=== PATIENT | female | born 1955 | race African-American/Black ===

== ENCOUNTER 2023-02-27 05:44 | Inpatient (IN) | payer OTHER, MEDICAID ==
[2023-02-27] VITALS (27 sets, daily range): BP systolic 84–140; BP diastolic 32–101
[~2023-02-27] VITALS: Ht 170.2 cm; Wt 98.0 kg
[2023-02-27] MEDS ORDERED: cefTRIAXone 1GM/50ML D5W 50 ML IV ONE (07:00)
[2023-02-27] MEDS ORDERED: SODIUM CHLORIDE 0.9% 1,000 ML IV ONE ×2 (07:00)
[2023-02-27 07:27] LABS: Eosinophils # (auto) 0.1 10 ^3/uL (0-0.8); Eosinophils % (auto) 0.6 % (0.0-7.0); Hemoglobin 12.4 g/dL (12.2-16.2); Nucleated Red Blood Cells % 0.1 %
[2023-02-27 07:30] LABS: Basophils # (auto) 0 10 ^3/uL (0-0.2); Basophils % (auto) 0.3 % (0.0-2.0); Hematocrit 39.1 % (36.0-46.0); Lymphocytes # (auto) 1.4 10 ^3/uL (0.4-5.4); Lymphocytes % (auto) 13.1 % (10.0-50.0); Mean Corpuscular Hemoglobin 25.6 pg (28.0-32.0); Mean Corpuscular Hgb Conc. 31.6 g/dL (32.0-36.0); Mean Corpuscular Volume 81.2 fL (80.0-100.0); Monocytes # (auto) 1.2 10 ^3/uL (0-1.3); Monocytes % (auto) 10.9 % (0.0-12.0); Neutrophils % (auto) 75.1 % (37.0-80.0); Red Blood Cells 4.82 10^6/uL (4.0-5.20); Red Cell Distribution Width 16.4 % (11.8-14.3); White Blood Cell 10.7 10^3/uL (4.4-10.8)
[2023-02-27 07:51] LABS: INR 1.11 (0.9-1.15)
[2023-02-27 07:52] LABS: Lactic Acid w/Reflex 3.8 mmol/L (0.4-2.0)
[2023-02-27 07:58] LABS: Albumin 3.4 g/dL (3.4-5.0); BUN/Creatinine Ratio 13.6 (10.0-20.0); Bilirubin, Total 0.6 mg/dL (0.2-1.0); Total Protein 7.5 g/dL (6.4-8.2)
[2023-02-27 08:01] LABS: Potassium 6.6 mmol/L (3.5-5.1)
[2023-02-27] MEDS ORDERED: ENOXAPARIN SOD 100 MG/1 ML SYRINGE SC ONE (08:15)
[2023-02-27] MEDS ORDERED: ALBUTEROL SULF 2.5 MG/0.5ML(0.5%) NEB SOLN NEB ONE (08:15)
[2023-02-27] MEDS ORDERED: DEXTROSE (50%) 50ML SYRG IV ONE (08:15)
[2023-02-27] MEDS ORDERED: CALCIUM GLUC 1,000mg/50ml-NS 50 ML IV ONE (08:15)
[2023-02-27] MEDS ORDERED: FUROSEMIDE 20 MG/2 ML VIAL IV ONE (08:15)
[2023-02-27] MEDS ORDERED: SODIUM ZIRCONIUM CYCL 10 GM PAK PO ONE (08:15)
[2023-02-27] MEDS ORDERED: InsuLIN REG 1unit/0.01ml Soln (100units/ml) IV ONE (08:15)
[2023-02-27] MEDS ORDERED: SODIUM BICARBONATE 8.4% INJ 50ML SYRINGE IV ONE (08:15)
[2023-02-27] MEDS ORDERED: DEXTROSE 10% 250 ML IV ONE ×2 (08:36→08:45)
[2023-02-27 11:13] LABS: Urine Bacteria None Seen /hpf (None Seen)
[2023-02-27] MEDS ORDERED: NITROGLYCERIN 0.4 MG SL TAB SL PRN (12:00)
[2023-02-27] MEDS ORDERED: SODIUM CHLORIDE 0.9% 1,000 ML IV SCH (12:00)
[2023-02-27] MEDS ORDERED: MORPHINE SULFATE INJ 2 MG/ml SYRG IV PRN (12:00)
[2023-02-27] MEDS ORDERED: HYDROcodone-ACET 5/325MG TAB PO PRN (12:00)
[2023-02-27] MEDS ORDERED: ONDANSETRON HCL 4 MG/2 ML VIAL IV PRN (12:00)
[2023-02-27] MEDS ORDERED: ACETAMINOPHEN 325 MG TAB PO PRN (12:00)
[2023-02-27] MEDS ORDERED: NOREPINEPHRINE 8 MG/250ML KIT 250 ML IV SCH (12:30)
[2023-02-27 12:37] LABS: Urine Blood Trace /uL (Negative); Urine Specific Gravity 1.016 (1.001-1.035)
[2023-02-27 12:38] LABS: Urine WBC 12 /hpf (0 - 5)
[2023-02-27] MEDS ORDERED: SODIUM BICARBONATE 50ML VIAL 50 ML in SOD CHL 0.45% 1,000 ML IV SCH (13:15)
[2023-02-27] MEDS: MORPHINE SULFATE INJ 2 MG/ml SYRG IV PRN ×2 (15:50→20:57)
[2023-02-27] MEDS: SODIUM BICARB 50ML SYR 50 ML in D5W/SOD CHL 0.45% 1,000 ML IV SCH (20:30)
[2023-02-27] MEDS ORDERED: SODIUM BICARBONATE 8.4 % INJ 50ML VIAL IV ONE (20:49)
[2023-02-27] MEDS ORDERED: MELO1TAB56 PO (21:35)
[2023-02-27] MEDS ORDERED: HYDR-4296 PO (21:35)
[2023-02-27] MEDS ORDERED: METF-370 PO (21:35)
[2023-02-27] MEDS ORDERED: GABA-339 PO (21:35)
[2023-02-27] MEDS ORDERED: ATOR40TA52 PO (21:35)
[2023-02-27] MEDS ORDERED: INSLANTI SC (21:35)
[2023-02-27] MEDS ORDERED: OXYB5SYP4 PO (21:35)
[2023-02-27] MEDS ORDERED: BENA20TA14 PO (21:35)
[2023-02-28] VITALS (75 sets, daily range): BP systolic 92–159; BP diastolic 34–102
[2023-02-28] MEDS: MORPHINE SULFATE INJ 2 MG/ml SYRG IV PRN ×2 (03:06→21:26)
[2023-02-28 05:04] LABS: Basophils # (auto) 0 10 ^3/uL (0-0.2); Eosinophils # (auto) 0.1 10 ^3/uL (0-0.8); Monocytes # (auto) 1.5 10 ^3/uL (0-1.3); Nucleated Red Blood Cells % 0.1 %
[2023-02-28 05:07] LABS: Basophils % (auto) 0.2 % (0.0-2.0); Eosinophils % (auto) 1.3 % (0.0-7.0); Hematocrit 36.9 % (36.0-46.0); Hemoglobin 11.8 g/dL (12.2-16.2); Lymphocytes # (auto) 1.5 10 ^3/uL (0.4-5.4); Lymphocytes % (auto) 15.6 % (10.0-50.0); Mean Corpuscular Hemoglobin 25.8 pg (28.0-32.0); Mean Corpuscular Hgb Conc. 31.9 g/dL (32.0-36.0); Mean Corpuscular Volume 80.8 fL (80.0-100.0); Monocytes % (auto) 15.8 % (0.0-12.0); Neutrophils # (auto) 6.3 10 ^3/uL (1.6-8.6); Neutrophils % (auto) 67.1 % (37.0-80.0); Red Blood Cells 4.56 10^6/uL (4.0-5.20); Red Cell Distribution Width 15.9 % (11.8-14.3); White Blood Cell 9.4 10^3/uL (4.4-10.8)
[2023-02-28 05:20] LABS: Albumin 3.1 g/dL (3.4-5.0); Calcium 8.1 mg/dL (8.5-10.1); Potassium 4.7 mmol/L (3.5-5.1)
[2023-02-28 05:23] LABS: BUN/Creatinine Ratio 26.4 (10.0-20.0); Bilirubin, Total 0.5 mg/dL (0.2-1.0); Total Protein 7.2 g/dL (6.4-8.2)
[2023-02-28] MEDS: cefTRIAXone 1GM/50ML D5W 50 ML IV SCH (08:34)
[2023-02-28] MEDS: SODIUM BICARB 50ML SYR 50 ML in D5W/SOD CHL 0.45% 1,000 ML IV SCH (08:54)
[2023-02-28 11:28] LABS: Protein, Urine 24.1 mg/dL (0.0-11.9)
[2023-02-28] MEDS: IPRATROPIUM BROM 0.5 MG/2.5ML INH SOL NEB SCH ×3 (12:36→23:59)
[2023-02-28] MEDS: ALBUTEROL SULF 2.5 MG/0.5ML(0.5%) NEB SOLN NEB SCH ×3 (12:36→23:59)
[2023-02-28] MEDS ORDERED: diazePAM 5 MG TAB PO ONE (13:00)
[2023-02-28] MEDS ORDERED: HYDROmorphone HCL 2 MG/ML VL/or syr IV ONE (15:45)
[2023-02-28] MEDS: SODIUM CHLORIDE 0.9% 1,000 ML IV SCH (18:06)
[2023-02-28] MEDS: MUPIROCIN 2% OINT 15gm or 22gm FOR MRSA NARES EACHNOSTRI SCH (21:24)
[2023-02-28] MEDS: ATORVASTATIN 20 MG TAB PO SCH (21:26)
[2023-03-01] VITALS (18 sets, daily range): BP systolic 112–190; BP diastolic 66–95
[2023-03-01] MEDS: hydrALAZINE HCL 20 MG/ML VL IV PRN ×2 (04:53→09:15)
[2023-03-01] MEDS: IPRATROPIUM BROM 0.5 MG/2.5ML INH SOL NEB SCH ×4 (05:51→23:57)
[2023-03-01] MEDS: ALBUTEROL SULF 2.5 MG/0.5ML(0.5%) NEB SOLN NEB SCH ×4 (05:52→23:57)
[2023-03-01] MEDS: MORPHINE SULFATE INJ 2 MG/ml SYRG IV PRN (06:23)
[2023-03-01] MEDS: SODIUM CHLORIDE 0.9% 1,000 ML IV SCH (06:50)
[2023-03-01] MEDS: cefTRIAXone 1GM/50ML D5W 50 ML IV SCH (09:15)
[2023-03-01] MEDS: MUPIROCIN 2% OINT 15gm or 22gm FOR MRSA NARES EACHNOSTRI SCH ×2 (10:00→20:59)
[2023-03-01] MEDS: ASPirin 81 mg TAB PO SCH (10:21)
[2023-03-01 14:47] LABS: BUN/Creatinine Ratio 15.4 (10.0-20.0); Calcium 8.6 mg/dL (8.5-10.1); Potassium 4.2 mmol/L (3.5-5.1)
[2023-03-01] MEDS: ATORVASTATIN 20 MG TAB PO SCH (20:58)
[2023-03-02] MEDS: hydrALAZINE HCL 20 MG/ML VL IV PRN ×2 (04:41→08:40)
[2023-03-02 05:00] VITALS: BP 167/69
[2023-03-02] MEDS: IPRATROPIUM BROM 0.5 MG/2.5ML INH SOL NEB SCH ×2 (06:35→11:41)
[2023-03-02] MEDS: ALBUTEROL SULF 2.5 MG/0.5ML(0.5%) NEB SOLN NEB SCH ×2 (06:35→11:41)
[2023-03-02] MEDS: cefTRIAXone 1GM/50ML D5W 50 ML IV SCH (08:39)
[2023-03-02 09:00] VITALS: BP 173/66
[2023-03-02] MEDS: ASPirin 81 mg TAB PO SCH (10:00)
[2023-03-02] MEDS ORDERED: amLODIPine BESYLATE 5 MG TAB PO SCH (10:00)
[2023-03-02] MEDS: MUPIROCIN 2% OINT 15gm or 22gm FOR MRSA NARES EACHNOSTRI SCH (10:58)
[2023-03-02 13:00] VITALS: BP 170/70
[2023-03-02] MEDS ORDERED: IOHEXOL 350 MG/ML 100ML IJ ONE (13:56)
[2023-03-02] MEDS ORDERED: AML5T PO (16:40)
[2023-03-02] MEDS ORDERED: CEPH-510 PO (16:40)
[2023-03-02 17:00] VITALS: BP 171/85
== END 2023-03-02 19:00 | disposition home or self-care (01) | DRG 871 ==
LOC: ER 05:44 → OVERFLOW 11:57 → ICU CENTRL 17:20 → TELE-CENTR 03-01 15:30
PROVIDERS: ADMIT Internal Medicine; ATTEND Internal Medicine
DX: A41.9 Sepsis, unspecified organism (principal); G93.41 Metabolic encephalopathy; J96.01 Acute respiratory failure with hypoxia; N17.0 Acute kidney failure with tubular necrosis; R65.21 Severe sepsis with septic shock; I21.A1 Myocardial infarction type 2; E87.20 Acidosis, unspecified; J84.9 Interstitial pulmonary disease, unspecified; J98.11 Atelectasis; N39.0 Urinary tract infection, site not specified; E87.1 Hypo-osmolality and hyponatremia; E86.0 Dehydration; E87.5 Hyperkalemia; I12.9 Hypertensive chronic kidney disease with stage 1 through stage 4 chronic kidney disease, or unspecified chronic kidney disease; N18.9 Chronic kidney disease, unspecified; I27.20 Pulmonary hypertension, unspecified; K82.8 Other specified diseases of gallbladder; E78.5 Hyperlipidemia, unspecified; E66.9 Obesity, unspecified; E11.22 Type 2 diabetes mellitus with diabetic chronic kidney disease; G89.29 Other chronic pain; R79.89 Other specified abnormal findings of blood chemistry; Z68.35 Body mass index [BMI] 35.0-35.9, adult; Z88.0 Allergy status to penicillin
CPT/HCPCS: 36415; 70450; 71045; 74176; 76700; 76705; 78226; 80048; 80053; 81001; 82570; 82962; 83605; 83880; 84132; 84156; 84300; 84484; 85025; 85379; 85610; 85730; 87040; 87081; 87086; 93005; 93306; 93925; 93970; 94640; 96365; 96367; 96372; 96375; 99291; G0378; J0696; J1815; J2405